=== PATIENT | female | born 1945 | race Caucasian/White ===

== ENCOUNTER → 2019-11-28 14:16 | Outpatient (POV) | payer OTHER, MEDICARE, SELFPAY | DX: Z00.00 Encounter for general adult medical examination without abnormal findings (principal) ==

== ENCOUNTER 2024-01-13 15:54 | Observation (INO) | payer MEDICARE, SELFPAY ==
[2024-01-13] VITALS (12 sets, daily range): BP systolic 101–150; BP diastolic 51–64; PULSE 72–97; RESP 13–18; TEMP 36.7–38.3; O2SAT 93–98; BMI 30.1
--- NOTE | 2024-01-13 16:08 | ECG_ITS ---
APPROVED REPORT Exam: Resting ECG HR:91 bpm ECG Measurements Heart Rate 91 AXES [place] 169 P 71 QRSd 99 QRS 55 QT 354 T 60 QTc 403 Conclusion SINUS RHYTHM NORMAL ECG UNCONFIRMED REPORT Electronically signed by : Jeronimo Multani, 01/14/2024 23:12:04
--- NOTE | 2024-01-13 16:18 | XR_ITS ---
PROCEDURE INFORMATION: Exam: XR Chest Exam date and time: 01/13/2024 4:19 PM Age: 78 years old Clinical indication: Cough and fever; Additional info: Cough fever TECHNIQUE: Imaging protocol: Radiologic exam of the chest. Views: 2 views. COMPARISON: No relevant prior studies available. FINDINGS: Lungs: No evidence of airspace infiltrate. No pulmonary edema. Pleural spaces: No visible pleural effusion. No pneumothorax. Heart/Mediastinum: Cardiomediastinal silouhette is within normal limits. Bones/joints: No evidence of acute osseous abnormality. IMPRESSION: No acute findings. No evidence of pneumonia.
[2024-01-13 16:26] LABS: Coronavirus 19, PCR Not Detected (NotDetected); Influenza A, PCR Not Detected (NotDetected); Influenza B, PCR Not Detected (NotDetected)
--- NOTE | 2024-01-13 16:26 | ED_ITS ---
Discharge Plan Disposition Patient Disposition: Admitted Referrals Follow up/Referrals: Violet Sarah [Primary Care Provider] - See instructions Clinical Impressions Clinical Impression: Sepsis, Acute UTI Instructions Patient Instructions: DI for Diarrhea and Traveler's Diarrhea -- Adult, DI for Diarrhea and Traveler's Diarrhea -- Child, DI for Nausea -- Adult, DI for Nausea -- Child Print Language Print Language: Uzbek Discharge ED Provider: Linda Multani General Adult HPI General Chief complaint: Nausea/Vomiting/Diarrhea Stated complaint: Nausea,cough,fingers turning purple Time Seen by Provider: 01/13/24 16:08 Mode of Arrival: Ambulatory Source of Information: Patient Limitations: No Limitations Description of Symptoms (Recalled from ER Triage Doc. by RN): pt presents to ED with c/o nausea with no vomitting, weakness, fatigue. pt reports symptoms began last night. History of Present Illness HPI narrative: 78-year-old female presents today with rigors and chills she had an episode of diarrhea yesterday evening with a cough for a few days. No significant shortness of breath no urinary symptoms no rashes she states that she had a tactile fever yesterday evening has been taking antipyretics most recently 4 hours ago took Tylenol. States she just feels very cold despite having a fever last night. No objective temperature measurement known. H/o COPD, HTN, and a possible MD many years ago. Related Data Allergies Allergy/AdvReac Type Severity Reaction Status Date / Time No Known Allergies Allergy Verified 01/13/24 16:08 [facility] Disclaimer: The information contained in this section may have been updated after the patient was seen, as this information can be updated by other users. Social History Smoking Status: Current every day smoker alcohol intake: never current occupational status: other Travel in the last 8 weeks: None ROS Obtained: Yes All systems reviewed & no additional complaints except as documented Physical Exam General General appearance: alert Respiratory Respiratory exam: Present normal lung sounds bilaterally; Absent respiratory distress Cardiovascular Cardiovascular exam: Present regular rate; Absent normal rhythm Abdominal Exam Abdominal exam: Present soft; Absent distention or tenderness Neurological Exam Neurological exam: Present alert Medical Decision Making Medical Records Screening: Per USPSTF and CDC recommendations, given the prevalence of disease in our region, it is our hospital?s policy to screen for HIV and viral Hepatitis for all patients aged 18 and over and those with ongoing risk factors. Jean Claude Inquiry Pt receiving controlled substance: No Vital Signs: 01/13/24 16:05 01/13/24 16:12 01/13/24 16:15 Temperature 100.9 F H Temperature Source Oral Pulse Rate 97 H 89 Pulse Rate [Left Radial] 93 H Respiratory Rate 13 Blood Pressure Blood Pressure [Right Arm] 150/64 H Blood Pressure Mean [Right Arm] 92 02 Sat by Pulse Oximetry 97 98 96 Oxygen Delivery Method Room Air 01/13/24 16:33 01/13/24 16:45 01/13/24 17:00 Temperature Temperature Source Pulse Rate 89 85 83 Pulse Rate [Left Radial] Respiratory Rate Blood Pressure 127/59 L Blood Pressure [Right Arm] Blood Pressure Mean [Right Arm] 02 Sat by Pulse Oximetry 94 L 95 93 L Oxygen Delivery Method 01/13/24 17:15 01/13/24 17:30 01/13/24 18:00 Temperature Temperature Source Pulse Rate 78 84 84 Pulse Rate [Left Radial] Respiratory Rate Blood Pressure 118/58 L 111/63 Blood Pressure [Right Arm] Blood Pressure Mean [Right Arm] 02 Sat by Pulse Oximetry 93 L 95 95 Oxygen Delivery Method Room Air Room Air Lab Data Lab results reviewed: Yes I reviewed the patient's lab results. Lab Results 01/13/24 16:03: SARS-CoV-2 (PCR) Not detected, Influenza A Untype (PCR) Not detected, Influenza Type B (PCR) Not detected 01/13/24 16:05: WBC 15.0 H, RBC 4.98, Hgb 14.3, Hct 43.3, MCV 86.9, MCH 28.8, MCHC 33.1, RDW 14.3, Plt Count 234, MPV 8.7, Neut % (Auto) 84.8 H, Lymph % (Auto) 9.0 L, [place] % (Auto) 5.3, Eos % (Auto) 0.5, Baso % (Auto) 0.4, Neut # (Auto) 12.7 H, Lymph # (Auto) 1.4, [place] # (Auto) 0.8, Eos # (Auto) 0.1, Baso # (Auto) 0.1, Total Counted 100, Neutrophils % (Manual) 78 H, Lymphocytes % (Manual) 12, Monocytes % (Manual) 8, Eosinophils % (Manual) 2, Platelet Estimate Normal, Microcytosis 1+, Sodium 138, Potassium 3.8, Chloride 106, Carbon Dioxide 26, Anion Gap 9.8, BUN 14, Creatinine 0.90, Estimated Creat Clear 58, Estimated GFR 61, Est GFR ( Amer) 74, Glucose 127 H, Calcium 8.5, Phosphorus 2.4 L, Magnesium 2.1, Total Bilirubin 1.0, AST 29, ALT 20, Alkaline Phosphatase 55, Troponin I < 0.01, Total Protein 7.6, Albumin 4.2, Globulin 3.4 H, Albumin/Globulin Ratio 1.2 01/13/24 16:25: Lactate 0.8 01/13/24 18:25: Urine Color Yellow, Urine Appearance Clear, Urine pH 6.0, Ur Specific [place] 1.020, Urine Protein Trace, Urine Glucose (UA) Negative, Urine Ketones Negative, Urine Blood Trace-i, Urine Nitrate Negative, Urine Bilirubin Negative, Urine Urobilinogen 0.2, Ur Leukocyte Esterase Trace, Urine RBC 10-20, Urine WBC 50-100, Ur Squamous Epith Cells 5-10, Ur Transition Epith Cell 3-5, Ur Renal Epithelial Cell 3-5, Urine Bacteria 3+, Urine Mucus 2+ 01/13/24 16:05 01/13/24 16:05 Orders (Tests/Meds): ED MEDICATIONS Generic Name Dose Route Start Last Admin Trade Name Freq PRN Reason Stop Dose Admin Ceftriaxone Sodium 2 gm/ 100 mls @ 200 mls/hr 01/13/24 19:00 01/13/24 19:00 Sodium Chloride IV 01/23/24 18:59 200 mls/hr Q24H YANICK Administration Sodium Chloride 1,570 mls @ 785 mls/hr 01/13/24 18:50 01/13/24 19:00 Sod Chlor 0.9% 1000ml Bag 30 ml/kg infuse over 2 hr (1570 ml) 01/13/24 20:49 785 mls/hr IV Administration .Q2H ONE Sodium Chloride 10 ml 01/13/24 16:11 Sodium Chloride 0.9% 10ml Flush Syringe IV 02/12/24 16:10 NEEDED PRN Maintain IV Site Discontinued Medications Generic Name Dose Route Start Last Admin Trade Name Freq PRN Reason Stop Dose Admin Acetaminophen 1,000 mg 01/13/24 16:18 01/13/24 16:30 Acetaminophen 1,000mg/100ml Vial IV 01/13/24 16:19 1,000 mg ONCE ONE Administration Lactated Ringer's 1,000 mls @ 999 mls/hr 01/13/24 16:30 01/13/24 16:30 Lactated Ringer's 1000 Ml Bag IV 01/13/24 17:30 999 mls/hr .Q1H1M YANICK Administration ORDERS Category Date Time Status CT chest wo con Stat Cat Scan 01/13/24 18:48 Ordered Chest XR 2 view (NOT portable) [XR chest 2V] Stat Exams 01/13/24 16:18 Completed CBC w/Auto Diff [Complete Blood Count Auto Diff] Stat Lab 01/13/24 16:05 Completed CMP [Comprehensive Metabolic Panel] Stat Lab 01/13/24 16:05 Completed Diarrhea 23 Panel, PCR Routine Lab 01/13/24 16:25 Ordered Lactic Acid Stat Lab 01/13/24 16:25 Completed Magnesium Stat Lab 01/13/24 16:05 Completed Phosphorous Stat Lab 01/13/24 16:05 Completed Rapid PCR Covid and Flu A/B Stat Lab 01/13/24 16:03 Completed Trop I [Troponin I] Stat Lab 01/13/24 16:05 Completed Troponin I Q3H Lab 01/13/24 19:30 Ordered Troponin I Q3H Lab 01/13/24 22:30 Ordered UA [Urinalysis and Microscopic] Stat Lab 01/13/24 18:25 Completed Blood Culture Stat Micro 01/13/24 16:25 Received Urine Culture Stat Micro 01/13/24 18:25 Received Tissue Perfus/Sepsis Re-Eval Sepsis Re-Evaluation Performed: Yes Date Performed: 01/13/24 Time Performed: 19:04 Medical Decision Narrative: 78-year-old female with shaking rigors and chills and cough and diarrhea differential includes viral syndrome, bacterial illness causing colitis, pneumonia, bacteremia etc. Broad workup is pending including blood cultures rapid COVID and flu chest x-ray basic blood work will administer IV fluids and reassess. Reassessment 703 patient's vital signs have improved however on her labs she does have a significant leukocytosis in setting of fever she does meet SIRS criteria her urinalysis returned and is consistent with urinary tract infection all consistent with sepsis. Given the fact that she had respiratory symptoms and chest x-ray was performed which I personally interpreted there was no definitive evidence of pneumonia however get a noncontrasted CT scan to make sure that she did not have clear pneumonia this was performed I personally interpreted shows no significant airspace disease. I am also concerned that the patient may be bacteremic given her significant rigors and chills. 2 g of Rocephin have been initiated sepsis bolus was started patient will be admitted for further management. Critical Care Critical Care Time Critical Care Time: Yes Attestation: On 01/13/24, the high probability of a clinically significant, sudden or life threatening deterioration of the following system(s) required my full and direct attention, intervention and personal management. The time I documented below is in addition to time spent performing reported procedures but includes the following listed in this critical care notation. Total Time Total Critical Care Time: 35
[2024-01-13] MEDS: ACETAMINOPHEN 1,000MG/100ML VIAL 1000 MG IV (16:30)
[2024-01-13] MEDS: LACTATED RINGERS 1000ML 1,000 ML 999 ML IV (16:30)
--- NOTE | 2024-01-13 16:32 | PC.NURSE ---
Back from radiology
[2024-01-13 16:40] LABS: Albumin Level 4.2 g/dl (3.5-5.0); Chloride 106 mmol/L (98-107); Potassium 3.8 mmoL/L (3.5-5.1); Sodium 138 mmol/L (136-145)
[2024-01-13 16:42] LABS: Blood Urea Nitrogen 14 mg/dl (7-17); Creatinine Clearance Estimated 58 mL/min (50-200); Estimated Glomerular Filt Rate 61 ml/min (>60); GFR (African American) 74 ML/MIN (>60)
[2024-01-13 16:43] LABS: Alanine Aminotransferase 20 U/L (12-78); Albumin/Globulin Ratio 1.2 (1.1-1.8); Alkaline Phosphatase 55 U/L (38-126); Anion Gap 9.8 mEq/L (5-15); Aspartate Amino Transferase 29 U/L (14-36); Calcium 8.5 mg/dl (8.4-10.2); Carbon Dioxide 26 mmol/L (22.0-30.0); Globulin 3.4 g/dL (1.3-3.2); Glucose 127 mg/dl (74-100); Magnesium 2.1 mg/dl (1.6-2.3); Phosphorous 2.4 mg/dl (2.5-4.5); Total Protein,Serum 7.6 g/dl (6.3-8.2)
[2024-01-13 16:45] LABS: Lactic Acid 0.8 mmol/L (0.7-2.1)
[2024-01-13 17:00] LABS: Basophils # 0.1 K/mm3 (0-0.2); Basophils % 0.4 % (0.1-2.0); Eosinophils # 0.1 K/mm3 (0.0-0.4); Eosinophils % 0.5 % (0.1-12.0); Hematocrit 43.3 % (37.0-47.0); Hemoglobin 14.3 g/dL (12.2-16.2); Lymphocytes # 1.4 K/mm3 (0.7-4.5); Mean Corpuscular HGB Conc 33.1 g/dL (31.8-35.4); Mean Corpuscular Hemoglobin 28.8 pg (27.0-31.2); Mean Corpuscular Volume 86.9 fl (81-99); Mean Platelet Volume 8.7 fl (7.4-10.4); Monocytes # 0.8 K/mm3 (0.1-1.0); Monocytes % 5.3 % (1.7-9.3); Neutrophils # 12.7 K/mm3 (1.8-7.8); Neutrophils % 84.8 % (37.0-80.0); Platelet Count 234 K/mm3 (142-424); Red Blood Count 4.98 M/mm3 (4.20-5.40); Red Cell Distribution Width 14.3 % (11.5-17.5)
[2024-01-13 17:03] LABS: Troponin I < 0.01 ng/ml (0.00-0.034)
[2024-01-13 17:08] LABS: MANUAL DIFFERENTIAL MANUAL DIFFERENTIAL (MANUAL DIFF)
[2024-01-13 18:21] LABS: Eosinophils % 2 % (0-3); Lymphocytes % 12 % (10-50); Monocytes % 8 % (2-9); Neutrophils % 78 % (42-76); Total Cells Counted 100
[2024-01-13 18:22] LABS: Microcytosis 1+; Platelet Estimate Normal
[2024-01-13 18:30] LABS: Microscopic, Urine URINE MICROSCOPIC (MICROSCOPIC)
[2024-01-13 18:32] LABS: Appearance,Urine CLEAR (Clear); Bilirubin,Urine Negative (Negative); Blood, Urine TRACE-I (Negative); Color,Urine YELLOW (Yellow); Glucose,Urine (UA) Negative (Negative); Ketones,Urine Negative (Negative); Leukocyte Esterase,Urine TRACE (Negative); Nitrate,Urine Negative (Negative); Protein,Urine TRACE (Negative); Urobilinogen,Urine 0.2 EU/dl (0.2)
--- NOTE | 2024-01-13 18:41 | PC.NURSE ---
Dr. Multani at bedside
[2024-01-13 18:47] LABS: WBC,Urine 50-100 #/hpf (0-3)
[2024-01-13 18:48] LABS: Bacteria,Urine 3+ /lpf; Mucus,Urine 2+ /lpf
--- NOTE | 2024-01-13 18:48 | CT_ITS ---
PROCEDURE INFORMATION: Exam: CT Chest Without Contrast; Diagnostic Exam date and time: 01/13/2024 6:58 PM Age: 78 years old Clinical indication: Cough and fever and shortness of breath; Additional info: Cough, fever, poss pna TECHNIQUE: Imaging protocol: Diagnostic computed tomography of the chest without contrast. Radiation optimization: All CT scans at this facility use at least one of these dose optimization techniques: automated exposure control; mA and/or kV adjustment per patient size (includes targeted exams where dose is matched to clinical indication); or iterative reconstruction. COMPARISON: CR XR CHEST 2V 01/13/2024 4:19 PM FINDINGS: Lungs: No evidence of acute airspace infiltrate or congestive pulmonary edema. Calcified pulmonary granuloma in the right upper lobe consistent with chronic sequelae of prior granulomatous disease. Pleural spaces: No pleural effusion. No pneumothorax. Heart: No cardiomegaly. No pericardial effusion. Mitral and aortic valve calcifications. Coronary arteries: Three-vessel calcific coronary artery disease. Lymph nodes: Calcified mediastinal lymph nodes consistent with chronic sequelae of prior granulomatous disease. No pathologically enlarged lymph nodes by imaging criteria. Vasculature: Unremarkable. Diaphragm: Small hiatal hernia. Bones/joints: Multi-level bridging or beaked disc osteophytes in the lower thoracic spine compatible with diffuse idiopathic skeletal hyperostosis (DISH). No evidence of acute osseous abnormality. Soft tissues: Unremarkable. IMPRESSION: 1. No evidence of pneumonia or other acute cardiopulmonary process. 2. Mitral and aortic valve calcifications. 3. Three-vessel calcific coronary artery disease. 4. Small hiatal hernia. 5. Diffuse idiopathic skeletal hyperostosis (DISH) in the lower thoracic spine.
[2024-01-13] MEDS: 0.9 % SODIUM CHLORIDE 1000ML 1,570 ML 785 ML IV (19:00)
[2024-01-13] MEDS: CEFTRIAXONE SODIUM 2 GM in 0.9 % SODIUM CHLORIDE 100 ML IV (19:00)
--- NOTE | 2024-01-13 19:12 | PC.NURSE ---
Dr. Multani is s/w Dr. Quarles
--- NOTE | 2024-01-13 19:22 | EXP.HP ---
History of Present Illness *Admission Date: 01/13/24 *Reason for visit:: Fever *History of present illness: This is a 78-year-old female that presents to [facility] emergency department with concerns of fever and chills over the last 24 hours. She describes recent nausea, vomiting and diarrhea that has improved. She reports some dysuria but no associated flank pain, gross hematuria or vaginal discharge. She reports that she has been able to keep some fluids down. She denies increasing abdominal pain, hematemesis, melena or hematochezia. She started feeling feverish so she presented to the ED for evaluation. In the ED she was tachycardic, tachypneic with UTI and leukocytosis. She has received fluid resuscitation and IV antibiotic therapy. [facility] Medical History (Updated 01/13/24 @ 20:28 by Cassidy Jackson RN) Diabetes mellitus, type 2 Heart murmur Cataract Thyroid cancer COPD (chronic obstructive pulmonary disease) Benign essential HTN Surgical History Hx of LASIK H/O thyroidectomy Social History Smoking Status: Current every day smoker alcohol intake: never current occupational status: retired Travel in the last 8 weeks: None Review of Systems Review of Systems Review of systems:: pertinent systems reviewed and negative unless documented below Meds Home Medications and Allergies Home Medications ?Medication ?Instructions ?Recorded ?Confirmed ?Type albuterol sulfate 90 mcg/actuation 2 inh inhalation QID PRN COPD 01/13/24 01/13/24 History aerosol inhaler amlodipine 10 mg tablet 10 mg PO DAILY 01/13/24 01/13/24 History aspirin 81 mg tablet,delayed 81 mg PO DAILY 01/13/24 01/13/24 History release atenolol 100 mg tablet 100 mg PO DAILY 01/13/24 01/13/24 History furosemide 20 mg tablet 20 mg PO DAILY 01/13/24 01/13/24 History levothyroxine 150 mcg tablet 150 mcg PO DAILY 01/13/24 01/13/24 History losartan 50 mg tablet 50 mg PO DAILY 01/13/24 01/13/24 History metformin 500 mg tablet 500 mg PO DAILY 01/13/24 01/13/24 History mometasone-formoterol HFA 200 2 inh inhalation BID 01/13/24 01/13/24 History mcg-5 mcg/actuation aerosol inhaler (Dulera) omeprazole 20 mg capsule,delayed 20 mg PO DAILY 01/13/24 01/13/24 History release rosuvastatin 10 mg tablet 10 mg PO DAILY 01/13/24 01/13/24 History New Prescriptions to Start Prescriptions: Allergies Allergy/AdvReac Type Severity Reaction Status Date / Time No Known Allergies Allergy Verified 01/13/24 16:08 Exam Data for Last 24 hours Vital signs and Labs for Last 24 Hours: Temp Pulse Resp BP Pulse Ox O2 Del Method 100.9 F H 84 13 111/63 95 Room Air 01/13/24 16:05 01/13/24 18:00 01/13/24 16:05 01/13/24 18:00 01/13/24 18:00 01/13/24 18:00 Laboratory Results - last 24 hr 01/13/24 16:03: SARS-CoV-2 (PCR) Not detected, Influenza A Untype (PCR) Not detected, Influenza Type B (PCR) Not detected 01/13/24 16:05: WBC 15.0 H, RBC 4.98, Hgb 14.3, Hct 43.3, MCV 86.9, MCH 28.8, MCHC 33.1, RDW 14.3, Plt Count 234, MPV 8.7, Neut % (Auto) 84.8 H, Lymph % (Auto) 9.0 L, [place] % (Auto) 5.3, Eos % (Auto) 0.5, Baso % (Auto) 0.4, Neut # (Auto) 12.7 H, Lymph # (Auto) 1.4, [place] # (Auto) 0.8, Eos # (Auto) 0.1, Baso # (Auto) 0.1, Total Counted 100, Neutrophils % (Manual) 78 H, Lymphocytes % (Manual) 12, Monocytes % (Manual) 8, Eosinophils % (Manual) 2, Platelet Estimate Normal, Microcytosis 1+, Sodium 138, Potassium 3.8, Chloride 106, Carbon Dioxide 26, Anion Gap 9.8, BUN 14, Creatinine 0.90, Estimated Creat Clear 58, Estimated GFR 61, Est GFR ( Amer) 74, Glucose 127 H, Calcium 8.5, Phosphorus 2.4 L, Magnesium 2.1, Total Bilirubin 1.0, AST 29, ALT 20, Alkaline Phosphatase 55, Troponin I < 0.01, Total Protein 7.6, Albumin 4.2, Globulin 3.4 H, Albumin/Globulin Ratio 1.2 01/13/24 16:25: Lactate 0.8 01/13/24 18:25: Urine Color Yellow, Urine Appearance Clear, Urine pH 6.0, Ur Specific [place] 1.020, Urine Protein Trace, Urine Glucose (UA) Negative, Urine Ketones Negative, Urine Blood Trace-i, Urine Nitrate Negative, Urine Bilirubin Negative, Urine Urobilinogen 0.2, Ur Leukocyte Esterase Trace, Urine RBC 10-20, Urine WBC 50-100, Ur Squamous Epith Cells 5-10, Ur Transition Epith Cell 3-5, Ur Renal Epithelial Cell 3-5, Urine Bacteria 3+, Urine Mucus 2+ I & O for Last 24 hours: Intake & Output 01/10/24 01/11/24 01/12/24 01/13/24 23:59 23:59 23:59 23:59 Weight 77.111 kg Constitutional Constitutional: no acute distress, obese, chronically ill appearing and cooperative *Routine HEENT Exam Head: Present normocephalic Eye: Present EOMI and PERRL ENT: Present mucous membranes dry *Routine Neck Exam Neck: Present supple; Absent lymphadenopathy *Routine Respiratory Exam Respiratory: Present rhonchi, normal respiratory effort and symmetric chest movement; Absent respiratory distress *Routine Cardiovascular Exam Cardiovascular: Present RRR, Normal S1 and Normal S2; Absent murmur *Routine Abdominal Exam Abdominal: Present soft and normoactive bowel sounds; Absent tenderness *Routine Rectal Exam Rectal:: deferred *Routine Genitalia Exam Genitalia:: deferred *Routine Extremities Exam Extremities: Present full ROM; Absent cyanosis or edema *Routine Skin Exam Skin: Present intact; Absent rash *Routine Neurological Exam Neurological: Present alert, oriented X3, moving all extremities, vision grossly intact, hearing grossly intact and normal speech; Absent sensory deficit or motor deficit Routine Psychiatric Exam Psychiatric: Present normal affect, normal thought process, cooperative, good insight and good judgment Assessment and Plan *Assessment and plan (1) Sepsis: Status: Acute Category: Medical Code(s): A41.9 - Sepsis, unspecified organism (2) Acute UTI: Status: Acute Category: Medical Code(s): N39.0 - Urinary tract infection, site not specified (3) Benign essential HTN: Status: Acute Category: Medical Code(s): I10 - Essential (primary) hypertension (4) COPD (chronic obstructive pulmonary disease): Status: Acute Category: Medical Code(s): J44.9 - Chronic obstructive pulmonary disease, unspecified Plan This is a 78-year-old female that meets sepsis criteria and her urinalysis is consistent with a urinary tract infection. She has received fluid resuscitation and is currently on IV antibiotic therapy and reports improvement. Problems addressed as follows: Sepsis, present on admission Tachycardia, tachypnea, leukocytosis, source identified Blood cultures pending Trending labs and inflammatory markers IV fluid resuscitation with normal lactic acid IV antibiotic therapy UTI Urinalysis reviewed Urine culture pending IV Rocephin Antiemetic therapy Gastroenteritis Trending labs and inflammatory markers GI PCR panel Diet as tolerated Antiemetic therapy Imodium therapy as needed COPD not in exacerbation Tobacco dependence Pulse oximetry monitoring Oxygen therapy to maintain appropriate oxygen saturations CT chest with no evidence of pneumonia or other acute cardiopulmonary process Tobacco cessation education Zoraida/Aurea inhalation therapy Nicotine replacement therapy The length of stay for this patient will be 2 midnights or greater due to above diagnoses.
--- NOTE | 2024-01-13 19:29 | PC.NURSE ---
Called report to [facility]
--- NOTE | 2024-01-13 19:43 | PC.NURSE ---
Patient arrived to floor via wheelchair from ED at 19:40.
[2024-01-13] MEDS: PANTOPRAZOLE 40MG TABLET 40 MG PO (20:36)
[2024-01-13] MEDS: LACTATED RINGERS 1000ML 1,000 ML 125 ML IV (20:36)
[2024-01-13] MEDS: NICOTINE 21MG/24HR PATCH 21 MG TD (20:46)
[2024-01-13] MEDS: HYDROCODONE/APAP 5/325 MG TABLET 1 TAB PO (22:46)
[2024-01-14] MEDS: LACTATED RINGERS 1000ML 1,000 ML 125 ML IV (03:02)
[2024-01-14 03:18] LABS: Adenovirus F 40/41, stool Not Detected (NotDetected); Astrovirus Not Detected (NotDetected); Campylobacter Not Detected (NotDetected); Clostridium Difficile A/B, PCR Not Detected (NotDetected); Cryptosporidium Not Detected (NotDetected); Cyclospora Cayetanesis Not Detected (NotDetected); Entamoeba histolytica Not Detected (NotDetected); Enteroaggregative E coli Not Detected (NotDetected); Enterotoxigenic E coli Not Detected (NotDetected); Giardia lamblia Not Detected (NotDetected); Norovirus Not Detected (NotDetected); Plesimonas Shigalloides, PCR Not Detected (NotDetected); Rotavirus A Not Detected (NotDetected); Salmonella, PCR Not Detected (NotDetected); Sapovirus Not Detected (NotDetected); Shiga-like toxin E coli Not Detected (NotDetected); Shigella Enterovasive E coli Not Detected (NotDetected); Vibrio Cholerae Not Detected (NotDetected); Vibrio, PCR Not Detected (NotDetected); Yersinia Entercolitica, PCR Not Detected (NotDetected)
[2024-01-14 04:00] VITALS: BP 122/67; PULSE 73; RESP 17; TEMP 36.7; O2SAT 92; BMI 30.1
[2024-01-14 04:42] LABS: Enteropathogenic E coli Detected (NotDetected)
--- NOTE | 2024-01-14 05:04 | PC.NURSE ---
Lab called to report Ecoli positive stool and positive blood cultures. Hospitalist notified.
--- NOTE | 2024-01-14 05:06 | PC.NURSE ---
Pt A&OX4 and has tolerated room air. VSS. Pt has received IV antibiotics and has LR going @125ml/hr. She has ambulated to the bathroom with standby assist. She has no complaints at this time, call light within reach.
[2024-01-14 06:52] LABS: Basophils # 0.1 K/mm3 (0-0.2); Basophils % 0.6 % (0.1-2.0); Chloride 112 mmol/L (98-107); Eosinophils # 0.2 K/mm3 (0.0-0.4); Eosinophils % 1.9 % (0.1-12.0); Hematocrit 36.5 % (37.0-47.0); Lymphocytes # 1.6 K/mm3 (0.7-4.5); Lymphocytes % 18.1 % (10-50); Mean Corpuscular HGB Conc 33.3 g/dL (31.8-35.4); Mean Corpuscular Hemoglobin 29.5 pg (27.0-31.2); Mean Corpuscular Volume 88.7 fl (81-99); Mean Platelet Volume 8.5 fl (7.4-10.4); Monocytes # 0.6 K/mm3 (0.1-1.0); Monocytes % 6.9 % (1.7-9.3); Neutrophils # 6.6 K/mm3 (1.8-7.8); Neutrophils % 72.5 % (37.0-80.0); Platelet Count 178 K/mm3 (142-424); Potassium 3.5 mmoL/L (3.5-5.1); Red Blood Count 4.11 M/mm3 (4.20-5.40); Red Cell Distribution Width 14.3 % (11.5-17.5); Sodium 140 mmol/L (136-145); White Blood Count 9.1 K/mm3 (4.8-10.8)
[2024-01-14 06:55] LABS: Anion Gap 5.5 mEq/L (5-15); Blood Urea Nitrogen 13 mg/dl (7-17); Carbon Dioxide 26 mmol/L (22.0-30.0); Creatinine Clearance Estimated 58 mL/min (50-200); Estimated Glomerular Filt Rate 70 ml/min (>60); GFR (African American) 84 ML/MIN (>60); Phosphorous 2.3 mg/dl (2.5-4.5)
[2024-01-14 06:56] LABS: Calcium 7.7 mg/dl (8.4-10.2); Glucose 105 mg/dl (74-100)
[2024-01-14 07:27] LABS: Hemoglobin 12.1 g/dL (12.2-16.2)
[2024-01-14 07:31] VITALS: BP 145/65; PULSE 76; RESP 18; TEMP 36.8; O2SAT 96
[2024-01-14] MEDS: ONDANSETRON 4MG/2ML VIAL 4 MG IV (08:15)
[2024-01-14] MEDS: ENOXAPARIN 40MG/0.4ML SYRINGE 40 MG SUBCUT (08:16)
--- NOTE | 2024-01-14 09:13 | HMH.PHAINT1 ---
Pharmacy Intervention Comments: MEDICATION RECONCILIATION COMPLETE USING EXTERNAL PHARMACY FILL HISTORY.
[2024-01-14 10:36] VITALS: BMI 30.9
--- NOTE | 2024-01-14 11:03 | P.DS_ITS ---
General Admission date:: 01/13/24 HPI HPI HPI: This is a 78-year-old female that presents to [facility] emergency department with concerns of fever and chills over the last 24 hours. She describes recent nausea, vomiting and diarrhea that has improved. She reports some dysuria but no associated flank pain, gross hematuria or vaginal discharge. She reports that she has been able to keep some fluids down. She denies increasing abdominal pain, hematemesis, melena or hematochezia. She started feeling feverish so she presented to the ED for evaluation. In the ED she was tachycardic, tachypneic with UTI and leukocytosis. She has received fluid resuscitation and IV antibiotic therapy. Hospital Course Hospital Course Hospital Course: This is a 78-year-old female that meets sepsis criteria and her urinalysis is consistent with a urinary tract infection. Admitted for a sepsis secondary to UTI. #Sepsis, resolved #UTI ? WBC improved to 9.1 today, no further fevers or tachycardia. ? Urine culture still pending, but improved significantly with IV ceftriaxone. ? Patient is feeling much better today, tolerating oral intake, having bowel movements. Ambulating independently without assistance. ? Discharged with cefdinir for 8 more days. Will contact patient if adjustments need to be made after urine culture results. ? Will follow-up with PCP within 1 week. #Gastroenteritis ? Diarrhea improved today. ? Stool PCR shows EPEC which will be treated supportively. Encouraged continued oral rehydration. #COPD ? Stable. Continue home Dulera. #Hypertension ? Resume home atenolol, amlodipine 10 mg, losartan 50 mg, Lasix 20 mg. Exam Data for Last 24 hours Vital signs and Labs for Last 24 Hours: Temp Pulse Resp BP Pulse Ox O2 Del Method 98.2 F 76 18 145/65 H 96 Room Air 01/14/24 07:31 01/14/24 07:31 01/14/24 07:31 01/14/24 07:31 01/14/24 07:31 01/14/24 09:00 Laboratory Results - last 24 hr 01/13/24 16:03: SARS-CoV-2 (PCR) Not detected, Influenza A Untype (PCR) Not detected, Influenza Type B (PCR) Not detected 01/13/24 16:05: WBC 15.0 H, RBC 4.98, Hgb 14.3, Hct 43.3, MCV 86.9, MCH 28.8, MCHC 33.1, RDW 14.3, Plt Count 234, MPV 8.7, Neut % (Auto) 84.8 H, Lymph % (Auto) 9.0 L, [place] % (Auto) 5.3, Eos % (Auto) 0.5, Baso % (Auto) 0.4, Neut # (Auto) 12.7 H, Lymph # (Auto) 1.4, [place] # (Auto) 0.8, Eos # (Auto) 0.1, Baso # (Auto) 0.1, Total Counted 100, Neutrophils % (Manual) 78 H, Lymphocytes % (Manual) 12, Monocytes % (Manual) 8, Eosinophils % (Manual) 2, Platelet Estimate Normal, Microcytosis 1+, Sodium 138, Potassium 3.8, Chloride 106, Carbon Dioxide 26, Anion Gap 9.8, BUN 14, Creatinine 0.90, Estimated Creat Clear 58, Estimated GFR 61, Est GFR ( Amer) 74, Glucose 127 H, Calcium 8.5, Phosphorus 2.4 L, Magnesium 2.1, Total Bilirubin 1.0, AST 29, ALT 20, Alkaline Phosphatase 55, Troponin I < 0.01, Total Protein 7.6, Albumin 4.2, Globulin 3.4 H, Albumin/Globulin Ratio 1.2 01/13/24 16:25: Lactate 0.8 01/13/24 18:25: Urine Color Yellow, Urine Appearance Clear, Urine pH 6.0, Ur Specific [place] 1.020, Urine Protein Trace, Urine Glucose (UA) Negative, Urine Ketones Negative, Urine Blood Trace-i, Urine Nitrate Negative, Urine Bilirubin Negative, Urine Urobilinogen 0.2, Ur Leukocyte Esterase Trace, Urine RBC 10-20, Urine WBC 50-100, Ur Squamous Epith Cells 5-10, Ur Transition Epith Cell 3-5, Ur Renal Epithelial Cell 3-5, Urine Bacteria 3+, Urine Mucus 2+ 01/14/24 03:12: Stl Aeromonas (PCR) Not detected, Stl C. cayetanensis PCR Not detected, Stool Rotavirus (PCR) Not detected, Stl Adenov F 40/41 PCR Not detected, Stool Astrovirus (PCR) Not detected, Stool Campylobacter PCR Not detected, Stl C.difficile Tox PCR Not detected, Stool Cryptosporidium PCR Not detected, Stl E.coli Shiga Tox PCR Not detected, Stool E coli O157 PCR Not detected, Stl Enterotoxigenic E PCR Not detected, Stool EPEC (PCR) Detected A, Stool EAEC (PCR) Not detected, Stl E. histolytica PCR Not detected, Stool Giardia Lamblia PCR Not detected, Stool Salmonella PCR Not detected, Stool Sapovirus (PCR) Not detected, Stl P. shigelloides PCR Not detected, Stl Shigella/EIEC PCR Not detected, St Y.enterocolitica PCR Not detected, Stool Vibrio (PCR) Not detected, Stl Vibrio cholerae PCR Not detected, Stl Norovirus GI/GII PCR Not detected 01/14/24 05:18: WBC 9.1 D, RBC 4.11 L, Hgb 12.1 L D, Hct 36.5 L, MCV 88.7, MCH 29.5, MCHC 33.3, RDW 14.3, Plt Count 178, MPV 8.5, Neut % (Auto) 72.5, Lymph % (Auto) 18.1, [place] % (Auto) 6.9, Eos % (Auto) 1.9, Baso % (Auto) 0.6, Neut # (Auto) 6.6, Lymph # (Auto) 1.6, [place] # (Auto) 0.6, Eos # (Auto) 0.2, Baso # (Auto) 0.1, Sodium 140, Potassium 3.5, Chloride 112 H, Carbon Dioxide 26, Anion Gap 5.5, BUN 13, Creatinine 0.80, Estimated Creat Clear 58, Estimated GFR 70, Est GFR ( Amer) 84, Glucose 105 H, Calcium 7.7 L, Phosphorus 2.3 L I & O for Last 24 hours: Intake & Output 01/11/24 01/12/24 01/13/24 01/14/24 23:59 23:59 23:59 23:59 Intake Total 2290 / 2290 Output Total 0 / 0 200 / 200 Balance 0 / 1500 2089 / 2089 Weight 77.156 kg 79.038 kg Microbiology Reports for the Last 24 Hours: Microbiology 01/13/24 16:25 Blood Blood Culture - Preliminary Constitutional Constitutional: no acute distress *Routine HEENT Exam Head: Present normocephalic Eye: Present EOMI and PERRL ENT: Present mucous membranes moist *Routine Neck Exam Neck: Present supple; Absent lymphadenopathy *Routine Respiratory Exam Respiratory: Present CTA bilaterally *Routine Cardiovascular Exam Cardiovascular: Present RRR *Routine Abdominal Exam Abdominal: Present soft and normoactive bowel sounds; Absent tenderness *Routine Extremities Exam Extremities: Absent cyanosis, clubbing or edema *Routine Skin Exam Skin: Present warm; Absent rash *Routine Neurological Exam Neurological: Present alert and oriented X3 Results Data Completed and Pending Labs on day of discharge: Labs from last 24 hours 01/14/24 01/14/24 01/13/24 05:18 03:12 18:25 WBC 9.1 D RBC 4.11 L Hgb 12.1 L D Hct 36.5 L MCV 88.7 MCH 29.5 MCHC 33.3 RDW 14.3 Plt Count 178 MPV 8.5 Neut % (Auto) 72.5 Lymph % (Auto) 18.1 [place] % (Auto) 6.9 Eos % (Auto) 1.9 Baso % (Auto) 0.6 Neut # (Auto) 6.6 Lymph # (Auto) 1.6 [place] # (Auto) 0.6 Eos # (Auto) 0.2 Baso # (Auto) 0.1 Total Counted Neutrophils % (Manual) Lymphocytes % (Manual) Monocytes % (Manual) Eosinophils % (Manual) Platelet Estimate Microcytosis Sodium 140 Potassium 3.5 Chloride 112 H Carbon Dioxide 26 Anion Gap 5.5 BUN 13 Creatinine 0.80 Estimated Creat Clear 58 Estimated GFR 70 Est GFR ( Amer) 84 Glucose 105 H Lactate Calcium 7.7 L Phosphorus 2.3 L Magnesium Total Bilirubin AST ALT Alkaline Phosphatase Troponin I Total Protein Albumin Globulin Albumin/Globulin Ratio Urine Color Yellow Urine Appearance Clear Urine pH 6.0 Ur Specific [place] 1.020 Urine Protein Trace Urine Glucose (UA) Negative Urine Ketones Negative Urine Blood Trace-i Urine Nitrate Negative Urine Bilirubin Negative Urine Urobilinogen 0.2 Ur Leukocyte Esterase Trace Urine RBC 10-20 Urine WBC 50-100 Ur Squamous Epith Cells 5-10 Ur Transition Epith Cell 3-5 Ur Renal Epithelial Cell 3-5 Urine Bacteria 3+ Urine Mucus 2+ Stl Aeromonas (PCR) Not detected Stl C. cayetanensis PCR Not detected Stool Rotavirus (PCR) Not detected Stl Adenov F 40/41 PCR Not detected Stool Astrovirus (PCR) Not detected Stool Campylobacter PCR Not detected Stl C.difficile Tox PCR Not detected Stool Cryptosporidium PCR Not detected Stl E.coli Shiga Tox PCR Not detected Stool E coli O157 PCR Not detected Stl Enterotoxigenic E PCR Not detected Stool EPEC (PCR) Detected A Stool EAEC (PCR) Not detected Stl E. histolytica PCR Not detected Stool Giardia Lamblia PCR Not detected Stool Salmonella PCR Not detected Stool Sapovirus (PCR) Not detected Stl P. shigelloides PCR Not detected Stl Shigella/EIEC PCR Not detected St Y.enterocolitica PCR Not detected Stool Vibrio (PCR) Not detected Stl Vibrio cholerae PCR Not detected Stl Norovirus GI/GII PCR Not detected SARS-CoV-2 (PCR) Influenza A Untype (PCR) Influenza Type B (PCR) 01/13/24 01/13/24 01/13/24 16:25 16:05 16:03 WBC 15.0 H RBC 4.98 Hgb 14.3 Hct 43.3 MCV 86.9 MCH 28.8 MCHC 33.1 RDW 14.3 Plt Count 234 MPV 8.7 Neut % (Auto) 84.8 H Lymph % (Auto) 9.0 L [place] % (Auto) 5.3 Eos % (Auto) 0.5 Baso % (Auto) 0.4 Neut # (Auto) 12.7 H Lymph # (Auto) 1.4 [place] # (Auto) 0.8 Eos # (Auto) 0.1 Baso # (Auto) 0.1 Total Counted 100 Neutrophils % (Manual) 78 H Lymphocytes % (Manual) 12 Monocytes % (Manual) 8 Eosinophils % (Manual) 2 Platelet Estimate Normal Microcytosis 1+ Sodium 138 Potassium 3.8 Chloride 106 Carbon Dioxide 26 Anion Gap 9.8 BUN 14 Creatinine 0.90 Estimated Creat Clear 58 Estimated GFR 61 Est GFR ( Amer) 74 Glucose 127 H Lactate 0.8 Calcium 8.5 Phosphorus 2.4 L Magnesium 2.1 Total Bilirubin 1.0 AST 29 ALT 20 Alkaline Phosphatase 55 Troponin I < 0.01 Total Protein 7.6 Albumin 4.2 Globulin 3.4 H Albumin/Globulin Ratio 1.2 Urine Color Urine Appearance Urine pH Ur Specific [place] Urine Protein Urine Glucose (UA) Urine Ketones Urine Blood Urine Nitrate Urine Bilirubin Urine Urobilinogen Ur Leukocyte Esterase Urine RBC Urine WBC Ur Squamous Epith Cells Ur Transition Epith Cell Ur Renal Epithelial Cell Urine Bacteria Urine Mucus Stl Aeromonas (PCR) Stl C. cayetanensis PCR Stool Rotavirus (PCR) Stl Adenov F 40/41 PCR Stool Astrovirus (PCR) Stool Campylobacter PCR Stl C.difficile Tox PCR Stool Cryptosporidium PCR Stl E.coli Shiga Tox PCR Stool E coli O157 PCR Stl Enterotoxigenic E PCR Stool EPEC (PCR) Stool EAEC (PCR) Stl E. histolytica PCR Stool Giardia Lamblia PCR Stool Salmonella PCR Stool Sapovirus (PCR) Stl P. shigelloides PCR Stl Shigella/EIEC PCR St Y.enterocolitica PCR Stool Vibrio (PCR) Stl Vibrio cholerae PCR Stl Norovirus GI/GII PCR SARS-CoV-2 (PCR) Not detected Influenza A Untype (PCR) Not detected Influenza Type B (PCR) Not detected Preliminary micro results at discharge 01/13/24 16:25 Blood Culture - Preliminary Blood DS: Diagnosis Discharge Diagnosis (1) Sepsis: Status: Acute Code(s): A41.9 - Sepsis, unspecified organism (2) Acute UTI: Status: Acute Code(s): N39.0 - Urinary tract infection, site not specified (3) Benign essential HTN: Status: Acute Code(s): I10 - Essential (primary) hypertension (4) COPD (chronic obstructive pulmonary disease): Status: Acute Code(s): J44.9 - Chronic obstructive pulmonary disease, unspecified Meds Home Medications and Allergies Home Medications ?Medication ?Instructions ?Recorded ?Confirmed ?Type albuterol sulfate 90 mcg/actuation 2 inh inhalation QIDP PRN COPD 01/13/24 01/14/24 History aerosol inhaler amlodipine 10 mg tablet 10 mg PO DAILY 01/13/24 01/14/24 History aspirin 81 mg tablet,delayed 81 mg PO DAILY 01/13/24 01/14/24 History release atenolol 100 mg tablet 100 mg PO DAILY 01/13/24 01/14/24 History furosemide 20 mg tablet 20 mg PO DAILY 01/13/24 01/14/24 History levothyroxine 150 mcg tablet 150 mcg PO DAILYDM 01/13/24 01/14/24 History losartan 50 mg tablet 50 mg PO DAILY 01/13/24 01/14/24 History metformin 500 mg tablet 500 mg PO DAILY 01/13/24 01/14/24 History mometasone-formoterol HFA 200 2 inh inhalation BIDRT 01/13/24 01/14/24 History mcg-5 mcg/actuation aerosol inhaler (Dulera) omeprazole 20 mg capsule,delayed 20 mg PO HS 01/13/24 01/14/24 History release rosuvastatin 10 mg tablet 10 mg PO HS 01/13/24 01/14/24 History cefdinir 300 mg capsule 300 mg PO BID 4 days #8 caps 01/14/24 Rx magnesium oxide 400 mg (241.3 mg 400 mg PO DAILY 01/14/24 01/14/24 History magnesium) tablet potassium chloride 10 mEq 10 meq PO DAILY 01/14/24 01/14/24 History tablet,extended release New Prescriptions to Start Prescriptions: cefdinir Josse Kwon Allergies Allergy/AdvReac Type Severity Reaction Status Date / Time No Known Allergies Allergy Verified 01/13/24 16:08 Discharge Plan Disposition Patient Disposition: Home, Self-Care Condition: Fair Follow up Plan Follow up with: Violet Sarah [Primary Care Provider] - 01/16/24 (please call tuesdayJanuary 15 to schedule your hospital follow up appointment with your primary care physician. Thank you! (:) Prescriptions/Medication Reconciliation: New cefdinir 300 mg capsule 300 mg PO BID 4 Days Qty: 8 0RF Continued losartan 50 mg tablet 50 mg PO DAILY Patient Comments: TAKE 1 TABLET BY MOUTH ONCE DAILY metformin 500 mg tablet 500 mg PO DAILY Patient Comments: TAKE ONE TABLET BY MOUTH DAILY atenolol 100 mg tablet 100 mg PO DAILY Patient Comments: TAKE ONE TABLET BY MOUTH ONCE DAILY aspirin 81 mg tablet,delayed release (DR/EC) 81 mg PO DAILY Patient Comments: TAKE ONE TABLET BY MOUTH ONCE DAILY amlodipine 10 mg tablet 10 mg PO DAILY Patient Comments: TAKE ONE TABLET BY MOUTH ONCE DAILY levothyroxine 150 mcg tablet 150 mcg PO DAILYDM Patient Comments: TAKE 1 TABLET (150 MCG) BY ORAL ROUTE ONCE DAILY ON AN EMPTY STOMACH 30 MINUTES BEFORE BREAKFAST omeprazole 20 mg capsule,delayed release(DR/EC) 20 mg PO HS furosemide 20 mg tablet 20 mg PO DAILY Patient Comments: TAKE ONE TABLET BY MOUTH DAILY IN THE MORNING albuterol sulfate 90 mcg/actuation HFA aerosol inhaler 2 inh INHALATION QIDP PRN (Reason: COPD) Patient Comments: Inhale 2 puffs BY MOUTH 4 times a day as needed. rosuvastatin 10 mg tablet 10 mg PO HS Dulera 200-5 mcg/actuation HFA aerosol inhaler 2 inh INHALATION BIDRT Patient Comments: Inhale 2 puffs BY MOUTH twice a day, for COPD. potassium chloride 10 mEq tablet extended release 10 meq PO DAILY magnesium oxide 400 mg (241.3 mg magnesium) tablet 400 mg PO DAILY Problem Reconciliation Problems Reviewed?: Yes Patient Discharge Instructions Patient Instructions: DI for Chronic Obstructive Pulmonary Disease, DI for Urinary Tract Infection (UTI), DI for Sepsis -- Adult Print Language: Urdu Providers Primary Care Provider: Violet Sarah Admit Provider: Josse Kwon Attending Provider: Josse Kwon
--- NOTE | 2024-01-16 10:08 | SW/DCPLANNER ---
Spoke with patient on the phone. Patient stated that she is doing very well. Patient stated that she is going to call and make herself an appointment with her family . Patient stated that she has no concerns or questions at this time. Nina Monreal
== END 2024-01-14 12:40 | disposition home or self-care (01) ==
LOC: ER 18:54 → 2ND 19:31
PROVIDERS: Family Medicine; Admitting Provider Student in an Organized Health Care Education/Training Program; Emergency Provider Student in an Organized Health Care Education/Training Program; PCP Nurse Practitioner Family; Visit Provider Student in an Organized Health Care Education/Training Program
DX: N39.0 Urinary tract infection, site not specified (principal); I10 Essential (primary) hypertension; J44.9 Chronic obstructive pulmonary disease, unspecified; F17.210 Nicotine dependence, cigarettes, uncomplicated; E11.9 Type 2 diabetes mellitus without complications; Z79.84 Long term (current) use of oral hypoglycemic drugs
CPT/HCPCS: 71046; 71250; 80048; 80053; 81001; 83605; 83735; 84100; 84484; 85007; 85025; 85027; 87040; 87077; 87086; 87507; 87636; 93005; 99291; G0378; J0131; J0696; J1650; J2405; J7030; J7120